=== PATIENT | female | born 1965 | race Caucasian/White ===

== ENCOUNTER 2022-02-17 09:24 | Emergency (ER) | payer MEDICAID ==
[~2022-02-17] VITALS: Ht 154.9 cm; Wt 60.3 kg
[2022-02-17 09:36] VITALS: BP_SYST 104
--- NOTE | 2022-02-17 09:36 | NUR ---
Patient to ER bed 7 for evaluation. Side rails up. Report given to Marivel GOETZ.
--- NOTE | 2022-02-17 10:28 | NUR ---
57YO F, WITH KNOWN ARRYTHMIA, BIBA FROM PARKING LOT WITH C/O LEFT ARM TINGLING, SWEATING, DIZZINESS AND SWEATING X FEW MINS. PT ADMITS BEING UNDER STRESS LATELY. MEDICS MONITORED HR @220, GAVE 6MG AND 12MG ADENOSINE. PT CONVERTED TO SINUS TACHY. IN ED, VSS. HR 88. AOX4. ALERT, ORIENTED. NORMAL RATE REGULAR RHYTHM. CLEAR BREATH SOUNDS. 2 SIDERAILS UP. ERMD MADE AWARE OF PT STATUS.
[2022-02-17 10:49] LABS: BASOPHILS % (AUTO) 0.5 % (0.0-2.0); EOSINOPHILS # (AUTO) 0.1 K/uL (0.0-0.4); EOSINOPHILS % (AUTO) 0.6 % (0.0-4.0); HEMATOCRIT 40.8 % (36-48); HEMOGLOBIN 13.8 g/dL (12.0-16.0); LYMPHOCYTES # (AUTO) 0.9 K/uL (1.0-5.5); LYMPHOCYTES % (AUTO) 10.9 % (20.5-51.5); MEAN CORPUSCULAR HEMOGLOBIN 30 pg (27-31); MEAN CORPUSCULAR HGB CONC 34 % (32-36); MEAN CORPUSCULAR VOLUME 90 fL (79.0-98.0); MONOCYTES # (AUTO) 0.4 K/uL (0.0-1.0); NEUTROPHILS # (AUTO) 6.8 K/uL (1.8-7.7); PLATELET COUNT (AUTO) 233 K/uL (130-430); RED BLOOD CELL COUNT(AUTO) 4.54 MIL/uL (4.2-6.2); RED CELL DISTRIBUTION WIDTH 14.2 % (9.0-15.0); WHITE BLOOD COUNT (AUTO) 8.2 K/uL (4.8-10.8)
[2022-02-17 11:07] LABS: CREATININE 0.67 mg/dL (0.55-1.30); POTASSIUM 3.8 mmol/L (3.5-5.1)
[2022-02-17 11:19] LABS: ALBUMIN 3.4 g/dL (3.4-4.8); THYROID STIMULATING HORMONE 0.43 uIu/mL (0.36-3.74); TOTAL BILIRUBIN 0.6 mg/dL (0.0-1.0)
--- NOTE | 2022-02-17 13:00 | NUR ---
CAL Olivo at bedside.
--- NOTE | 2022-02-17 13:41 | NUR ---
Patient given written and verbal discharge instructions and verbalizes understanding. ER MD discussed with patient the results and treatment provided. Patient in stable condition. ID arm band removed. IV catheter removed intact and dressing applied, no active bleeding. Patient educated on pain management and to follow up with PMD. Pain Scale 0/10. Opportunity for questions provided and answered. Patient A/OX4, VSS, resp even and unlabored, ambulatory. NAD noted at this time.
[2022-02-17 17:55] VITALS: BP_SYST 104
== END 2022-02-17 13:41 | disposition home or self-care (01) ==
LOC: SED 09:24
DX: I47.1 Supraventricular tachycardia (principal); R00.2 Palpitations; E11.9 Type 2 diabetes mellitus without complications; I10 Essential (primary) hypertension; Z79.899 Other long term (current) drug therapy
CPT/HCPCS: 99284; 80053; 83735; 84443; 85025; 84484; 36415; 93005; J1956

== ENCOUNTER 2022-05-22 15:29 | Emergency (ER) | payer MEDICAID ==
[~2022-05-22] VITALS: Ht 157.5 cm; Wt 68.0 kg
[2022-05-22 15:42] VITALS: BP_SYST 129
--- NOTE | 2022-05-22 15:57 | NUR ---
Pt bib self to the ER CC Abdominal Pain R/T GERD. Pt states past month GERD has been painful with 8/10 abdominal pain, diarrhea and black tarry stools past 3 days. Pt states Hx of HPylori bacteria 6years ago, Diabetes and cardiac arrhythmia.
--- NOTE | 2022-05-22 16:14 | NUR ---
ER at bedside examining patient.
[2022-05-22] MEDS ORDERED: PANTOPRAZOLE SODIUM 40 MG/VIAL (PROTONIX) IVP ONE (17:00)
[2022-05-22 17:26] LABS: EOSINOPHILS # (AUTO) 0.1 K/uL (0.0-0.4)
[2022-05-22 17:32] LABS: BASOPHILS % (AUTO) 0.7 % (0.0-2.0); EOSINOPHILS % (AUTO) 1.5 % (0.0-4.0); HEMATOCRIT 40.4 % (36-48); HEMOGLOBIN 13.3 g/dL (12.0-16.0); LYMPHOCYTES # (AUTO) 1.2 K/uL (1.0-5.5); LYMPHOCYTES % (AUTO) 25.7 % (20.5-51.5); MEAN CORPUSCULAR HEMOGLOBIN 30 pg (27-31); MEAN CORPUSCULAR HGB CONC 33 % (32-36); MEAN CORPUSCULAR VOLUME 91 fL (79.0-98.0); MONOCYTES # (AUTO) 0.4 K/uL (0.0-1.0); MONOCYTES % (AUTO) 7.6 % (1.7-9.3); NEUTROPHILS % (AUTO) 64.5 % (40.0-70.0); PLATELET COUNT (AUTO) 247 K/uL (130-430); RED BLOOD CELL COUNT(AUTO) 4.44 MIL/uL (4.2-6.2); RED CELL DISTRIBUTION WIDTH 13.2 % (9.0-15.0); WHITE BLOOD COUNT (AUTO) 4.6 K/uL (4.8-10.8)
[2022-05-22 17:35] LABS: CALCIUM 9.5 mg/dL (8.4-11.0); CREATININE 0.72 mg/dL (0.55-1.30)
[2022-05-22 17:42] LABS: ALBUMIN 4.1 g/dL (3.4-4.8); TOTAL BILIRUBIN 0.3 mg/dL (0.0-1.0)
[2022-05-22] MEDS ORDERED: SULF1TAB48 PO (17:51)
[2022-05-22] MEDS ORDERED: ESOM20CA38 PO (17:51)
--- NOTE | 2022-05-22 18:12 | NUR ---
Patient given written and verbal discharge instructions and verbalizes understanding. ER MD discussed with patient the results and treatment provided. Patient in stable condition. ID arm band removed. Rx of BACTRIM AND OMEPRAZOLE given. Patient educated on pain management and to follow up with PMD. Opportunity for questions provided and answered. Medication side effect fact sheet provided.
[2022-05-22 18:13] VITALS: BP_SYST 129
== END 2022-05-22 18:13 | disposition home or self-care (01) ==
LOC: SED 15:29
DX: A09 Infectious gastroenteritis and colitis, unspecified (principal); R10.13 Epigastric pain; K21.9 Gastro-esophageal reflux disease without esophagitis; E11.9 Type 2 diabetes mellitus without complications; I10 Essential (primary) hypertension; Z79.899 Other long term (current) drug therapy
CPT/HCPCS: 36415; 76376; 80053; 85025; 99284